=== PATIENT | male | born 1945 | race Caucasian/White ===

== ENCOUNTER → 2017-09-24 | Day surgery (SDC) | payer OTHER, MEDICARE ==
--- NOTE | 2017-09-27 09:22 | GPN ---
[f rep st] PROCEDURE NOTE DATE OF PROCEDURE: 09/24/2017 PREOPERATIVE DIAGNOSIS: Elevated prostate-specific antigen. POSTOPERATIVE DIAGNOSIS: Elevated prostate-specific antigen. PROCEDURE: Ultrasound-guided biopsies of the prostate. INDICATIONS: The patient is a 71-year-old male who has had progressive rise in PSA levels. After di scussing options, he elected to come in for prostate biopsies. DESCRIPTION OF PROCEDURE: With the patient in the left lateral decubitus position, the transrectal u ltrasound probe was inserted. Volume calculations were made, and the prostate was thoroughly examine d. No gross lesions were noted. 10 mL of 1% lidocaine were used to infiltrate the periprosthetic ti ssue. A total of 12 core biopsies was obtained in the right and left base, mid, and apical regions o f the prostate. These were submitted for pathologic evaluation. The probe was removed, the patient tolerated the procedure well. There were no complications. /[id number]/[id number]
== END | disposition home or self-care (01) ==
LOC: BMCIMAGING 07:25
PROVIDERS: ATTEND Urology
PROC: 0VB03ZX Excision of Prostate, Percutaneous Approach, Diagnostic (ICD-10-PCS; principal; 2017-09-24)
DX: R97.20 Elevated prostate specific antigen [PSA] (principal)